=== PATIENT | female | born 1980 | race Caucasian/White ===

== ENCOUNTER 2018-10-16 06:42 | Day surgery (SDC) | payer MEDICAID ==
[2018-10-16] MEDS ORDERED: Propofol 200 MG/20 ML SDV IV ONE (06:43)
[2018-10-16] MEDS ORDERED: Lidocaine 2% 100 MG/5 ML Syringe IVPUSH ONE (06:43)
[2018-10-16] MEDS ORDERED: Sodium Chloride 0.9% 10 ML Syringe FLUSH PRN (07:30)
[2018-10-16] MEDS ORDERED: Lactated Ringers 1,000 ML IV SCH (07:30)
--- NOTE | 2018-10-16 08:23 | PCM.OPNOTE ---
- General Post-Op/Procedure Note Date of Surgery/Procedure: 10/16/18 Operative Procedure(s): c scope Findings: normal exam Pre Op Diagnosis: constipation Post-Op Diagnosis: nl exam Anesthesia Technique: MAC Primary Surgeon: Arturo Jimenez Pathology: none Complications: None Condition: Good Free Text/Narrative:: see dictation
--- NOTE | 2018-10-16 11:20 | OR ---
DATE OF OPERATION: 10/16/2018 SURGEON: Arturo Jimenez MD PROCEDURE PERFORMED: Colonoscopy. PREOPERATIVE DIAGNOSIS: Constipation. POSTOPERATIVE DIAGNOSIS: Normal colon. INDICATIONS FOR PROCEDURE: This is a 38-year-old white female referred with a longstanding history of constipation. She was offered and accepted colonoscopy. DESCRIPTION OF OPERATION: After an excellent IV sedation was administered, digital rectal exam was performed. No marked abnormality was noted. The flexible colonoscope was inserted and advanced to the cecum without difficulty. The prep was excellent. The following findings were noted. Ascending colon, unremarkable. Transverse colon, unremarkable. Descending colon, unremarkable. Sigmoid and rectum, unremarkable. Colon was deflated as the scope was removed. The patient tolerated the procedure well. RECOMMENDATIONS: Repeat colonoscopy at the age of 50. /[id number] PIERO/ANYA
== END 2018-10-16 09:18 | disposition home or self-care (01) ==
LOC: FB.SDS 06:42
PROVIDERS: ATTEND Surgery
DX: K59.00 Constipation, unspecified (principal); E66.9 Obesity, unspecified; Z68.27 Body mass index [BMI] 27.0-27.9, adult; K21.9 Gastro-esophageal reflux disease without esophagitis; F32.9 Major depressive disorder, single episode, unspecified; Z79.899 Other long term (current) drug therapy; Z88.8 Allergy status to other drugs, medicaments and biological substances
CPT/HCPCS: 45378; 81025; J2001; J2704; J7120

== ENCOUNTER 2020-08-02 14:34 | Emergency (ER) | payer MEDICAID ==
[2020-08-02] MEDS ORDERED: Ondansetron 4 MG Tab.DIS PO ONE (14:35)
[2020-08-02] MEDS ORDERED: HYDROmorphone 2 MG/ML SDV IVPUSH ONE (14:48)
[2020-08-02] MEDS ORDERED: Sodium Chloride 0.9% 1,000 ML IV ONE (14:49)
[2020-08-02] MEDS ORDERED: Ondansetron 4 MG/2 ML SDV IVPUSH ONE (14:49)
[2020-08-02] MEDS ORDERED: Sodium Chloride 0.9% 10 ML Syringe FLUSH PRN (15:02)
[2020-08-02] MEDS ORDERED: Ketorolac 30 MG/ML SDV IVPUSH ONE (15:10)
--- NOTE | 2020-08-02 15:22 | EDM.PDOC ---
ED HPI GENERAL MEDICAL PROBLEM - General Chief Complaint: Genitourinary Problem Stated Complaint: POSSIBLE KIDNEY STONE Time Seen by Provider: 08/02/20 14:53 Source of Information: Reports: Patient History Limitations: Reports: No Limitations - History of Present Illness INITIAL COMMENTS - FREE TEXT/NARRATIVE: 39-year-old female who reports she woke at 7 AM today with a dull and aching pain in her left mid back and flank. She thought it was just a "backache" and then should begin to feel some gassy feeling in her abdomen and after she got up and moved around she had an acute and severe worsening of the pain that felt like something was being ripped out of her and at that point she had a 10/10 level of pain and she reports that she rested and the pain subsided by about 1 0:00 am and she felt some residual aching pain in her back until about 1:30 PM today when the pain came back at a severe level again. She reports the pain is very summer to when she had a kidney stone in the past. There has been no nausea or vomiting. No fevers or chills. She has continual urgency to urinate since 1:30 PM today. You. No dysuria. The pain is back up to a 10/10. She is crying in pain at present. She presents to the emergency department via private vehicle. She states she felt completely well prior to today. She has had no antecedent problems. There are no other associated signs or symptoms. There are no other modifying factors. Onset: Today (7 AM) Duration: Getting Worse, Waxing/Waning Location: Reports: Back, Other (Left flank) Quality: Reports: Ache, Sharp, Other (Ripping) Severity: Moderate (to severe) Improves with: Reports: None Worsens with: Reports: None Context: Reports: Other (As above.) Associated Symptoms: Reports: No Other Symptoms Treatments MANAGER APPLICATION: Reports: Other (see below) (Nothing.) Left Lower Back Pain Score (Numeric/FACES): 10 - Related Data Allergies Allergy/AdvReac Type Severity Reaction Status Date / Time carbamazepine Allergy Other Verified 08/02/20 15:00 sertraline [From Zoloft] Allergy Headache Verified 08/02/20 15:00 Home Meds: Home Meds Amitriptyline [Elavil] 75 mg PO BEDTIME 10/15/18 [History] Tretinoin [Retin-A] 15 gm TP BEDTIME 10/15/18 [History] polyethylene glycoL 3350 [MiraLAX] 17 gm PO DAILY PRN 10/15/18 [History] Linaclotide [Linzess] 145 mcg PO DAILY #30 capsule 10/16/18 [Rx] Baclofen 10 mg PO BEDTIME 08/02/20 [History] Gabapentin [Neurontin] 600 mg PO BEDTIME 08/02/20 [History] Phentermine HCl 0.5 tab PO BID 08/02/20 [History] Tamsulosin [Tamsulosin 24 Hr] 0.4 mg PO QPM #7 cap.er 08/02/20 [Rx] hydrOXYzine HCL [Hydroxyzine HCl] 75 mg PO BEDTIME 08/02/20 [History] metFORMIN [Glucophage] 500 mg PO DAILY 08/02/20 [History] Past Medical History Cardiovascular History: Reports: Arrhythmia (FREQUENT PVCs) Gastrointestinal History: Reports: Cholelithiasis, GERD Other Gastrointestinal History: COLITIS Genitourinary History: Reports: Renal Calculus Musculoskeletal History: Reports: Other (See Below) (TMJ D/O) Psychiatric History: Reports: Anxiety, Depression Endocrine/Metabolic History: Reports: Obesity/BMI 30+ - Past Surgical History GI Surgical History: Reports: Cholecystectomy, Colonoscopy, EGD, Hernia Repair/Other, Herlinda Fundoplication Female Surgical History: Reports: Cystoscopy, Hysterectomy, Lithotripsy/ESWL (With stent placed in ureter), Tubal Ligation Social & Family History - Tobacco Use Tobacco Use Status *Q: Never Tobacco User - Caffeine Use Caffeine Use: Reports: None - Alcohol Use Alcohol Use History: Yes Alcohol Use Frequency: Daily (1-2 beers daily.) - Recreational Drug Use Recreational Drug Use: No - Living Situation & Occupation 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.) ED ROS GENERAL - Review of Systems Review Of Systems: See Below Constitutional: Reports: No Symptoms HEENT: Reports: No Symptoms Respiratory: Reports: No Symptoms Cardiovascular: Reports: No Symptoms Endocrine: Reports: No Symptoms GI/Abdominal: Reports: No Symptoms : Reports: Flank Pain (Left) Musculoskeletal: Reports: Back Pain (Left mid back) Skin: Reports: No Symptoms Neurological: Reports: No Symptoms Psychiatric: Reports: No Symptoms Hematologic/Lymphatic: Reports: No Symptoms Immunologic: Reports: No Symptoms ED EXAM, RENAL/ - Physical Exam Exam: See Below Exam Limited By: No Limitations General Appearance: Alert, WD/WN, Moderate Distress (In acute pain.) Eye Exam: Bilateral Eye: EOMI, Normal Inspection Ears: Normal External Exam, Hearing Grossly Normal Nose: Normal Inspection, Normal Mucosa, No Blood Throat/Mouth: Normal Inspection, Normal Lips, Normal Oropharynx, Normal Voice, No Airway Compromise Head: Atraumatic, Normocephalic Neck: Normal Inspection, Supple, Non-Tender, Full Range of Motion Respiratory/Chest: No Respiratory Distress, Lungs Clear, Normal Breath Sounds, No Accessory Muscle Use, Chest Non-Tender Cardiovascular: Normal Peripheral Pulses, Regular Rate, Rhythm, No Murmur GI/Abdominal: Normal Bowel Sounds, Soft, Non-Tender, No Mass Back Exam: Normal Inspection, Full Range of Motion. No: CVA Tenderness (R), CVA Tenderness (L) Extremities: Normal Inspection, Normal Range of Motion, Non-Tender, Normal Capillary Refill, No Pedal Edema Neurological: Alert, Oriented, CN II-XII Intact, Normal Cognition, No Motor/Sensory Deficits Psychiatric: Normal Affect Skin Exam: Warm, Dry, Intact, Normal Color, No Rash Course - Vital Signs Last Recorded V/S: Last Vital Signs Temp 36.4 C 08/02/20 14:38 Pulse 83 08/02/20 16:00 Resp 16 08/02/20 16:00 BP 108/67 08/02/20 16:00 Pulse Ox 98 08/02/20 16:00 - Orders/Labs/Meds Orders: Active Orders 24 hr Category Date Time Status Abdomen Pelvis wo Cont [CT] Stat Exams 08/02/20 15:11 Taken Sodium Chloride 0.9% [Saline Flush] Med 08/02/20 15:02 Active 10 ml FLUSH ASDIRECTED PRN Peripheral IV Insertion Adult [OM.PC] Routine Oth 08/02/20 15:02 Ordered Medication Orders Sodium Chloride (Saline Flush) 10 ml FLUSH ASDIRECTED PRN PRN Reason: Keep Vein Open Last Admin: 08/02/20 14:56 Dose: 10 ml Documented by: LIZABETH Labs: Laboratory Tests 08/02/20 08/02/20 08/02/20 Range/Units 14:35 15:23 15:23 WBC 7.2 (4.5-12.0) X10-3/uL RBC 4.42 (3.23-5.20) x10(6)uL Hgb 13.4 (11.5-15.5) g/dL Hct 40.0 (30.0-51.3) % MCV 90.4 (80-96) fL MCH 30.4 (27.7-33.6) pg MCHC 33.6 (32.2-35.4) g/dL RDW 12.4 (11.5-15.5) % Plt Count 415 H (125-369) X10(3)uL MPV 7.3 L (7.4-10.4) fL Neut % (Auto) 72.2 (46-82) % Lymph % (Auto) 19.8 (13-37) % [place] % (Auto) 5.6 (4-12) % Eos % (Auto) 2 (1.0-5.0) % Baso % (Auto) 1 (0-2) % Neut # (Auto) 5.3 (1.6-8.3) # Lymph # (Auto) 1.4 (0.6-5.0) # [place] # (Auto) 0.4 (0.0-1.3) # Eos # (Auto) 0.1 (0.0-0.8) # Baso # (Auto) 0.0 (0.0-0.2) # Sodium 142 (135-145) mmol/L Potassium 4.1 (3.5-5.3) mmol/L Chloride 105 (100-110) mmol/L Carbon Dioxide 30 (21-32) mmol/L BUN 10 (7-18) mg/dL Creatinine 0.9 (0.55-1.02) mg/dL Est Cr Clr Drug Dosing 67.90 mL/min Estimated GFR (MDRD) > 60 (>60) BUN/Creatinine Ratio 11.1 (9-20) Glucose 125 H (80-116) mg/dL Calcium 8.7 (8.6-10.2) mg/dL Urine Color Yellow (YELLOW) Urine Appearance Turbid (CLEAR) Urine pH 8.0 H (5.0-6.5) Ur Specific [place] 1.015 (1.010-1.025) Urine Protein Negative (NEGATIVE) mg/dL Urine Glucose (UA) Normal (NORMAL) mg/dL Urine Ketones Negative (NEGATIVE) mg/dL Urine Occult Blood Negative (NEGATIVE) Urine Nitrite Negative (NEGATIVE) Urine Bilirubin Negative (NEGATIVE) Urine Urobilinogen Normal (NEGATIVE) mg/dL Ur Leukocyte Esterase Negative (NEGATIVE) Urine RBC 0-5 (0-5) Urine WBC 0-5 (0-5) Ur Squamous Epith Cells Many H (NS,R,O) Amorphous Sediment Many Urine Bacteria Few H (NS) Meds: Medications Generic Name Dose Route Start Last Admin Trade Name Freq PRN Reason Stop Dose Admin Sodium Chloride 10 ml 08/02/20 15:02 08/02/20 14:56 Saline Flush FLUSH 10 ml ASDIRECTED PRN Administration Keep Vein Open Discontinued Medications Generic Name Dose Route Start Last Admin Trade Name Freq PRN Reason Stop Dose Admin Hydromorphone HCl 0.5 mg 08/02/20 14:48 08/02/20 14:58 Dilaudid IVPUSH 08/02/20 14:49 0.5 mg ONETIME ONE Administration Sodium Chloride 1,000 mls @ 999 mls/hr 08/02/20 14:49 08/02/20 14:58 Normal Saline IV 08/02/20 15:49 999 mls/hr .BOLUS ONE Administration Ketorolac Tromethamine 30 mg 08/02/20 15:10 08/02/20 15:18 Toradol IVPUSH 08/02/20 15:11 30 mg ONETIME ONE Administration Ondansetron HCl 4 mg 08/02/20 14:49 08/02/20 14:56 Zofran IVPUSH 08/02/20 14:50 4 mg ONETIME ONE Administration Tamsulosin HCl 0.4 mg 08/02/20 16:08 08/02/20 16:17 Flomax PO 08/02/20 16:09 0.4 mg ONETIME ONE Administration - Re-Assessments/Exams Free Text/Narrative Re-Assessment/Exam: 08/02/20 15:30: Patient had received Dilaudid initially with minimal reduction in her pain. She received Toradol following this and now her pain is down to 5/10. She is going to radiology for CT scan of her abdomen and pelvis without IV contrast this point. 08/02/20 16:17: Patient reports she feels much improved. Pain is now down to 3/10. The CT scan of her abdomen and pelvis showed left UVJ stone that was 2 mm and there was [id number] hydroureteronephrosis. There is also a 4 mm stone in the right kidney. She will be given Flomax 0.4 mg by mouth. She should be able to pass this on her own. She states that she has hydrocodone at home and she can take that as needed for moderate to severe pain. I will give her a take- home pack of Zofran for any nausea that she may have an I will send a prescription of Flomax to [facility] pharmacy. She is to follow- up with her primary provider. Precautions and reasons for return to the emergency department were discussed with the patient while she was in the emergency department for details of the patient's discharge instructions. Departure - Departure Time of Disposition: 16:25 Disposition: Home, Self-Care 01 Clinical Impression: Left ureteral stone, Obstructive uropathy, Renal colic on left side - Discharge Information Prescriptions: Tamsulosin [Tamsulosin 24 Hr] 0.4 mg PO QPM #7 cap.er Instructions: Renal Colic, [id number], Kidney Stones, [id number] Referrals: PCP,None [Ordering Only Provider] - Forms: ED Department Discharge Additional Instructions: You are passing a kidney stone on the left side. The kidney stone is only 2 mm in size and you should be able to pass this on your own. You need to increase your fluid intake. You can take ibuprofen for pain as needed. You can also take the hydrocodone that you have at home for more severe pain. Medication as prescribed for nausea (Zofran 4 mg ODT). I have also prescribed a medication called Flomax that you need to take every night that should help your kidney stone to pass. Strain all of your urine follow-up with your primary provider this coming week. Back to the emergency department for severe, uncontrolled pain, unrelenting vomiting, fever or any other concerning sign or symptom. Sepsis Event Note (ED) - Evaluation Sepsis Screening Result: No Definite Risk - Focused Exam Vital Signs: Vital Signs Temp Pulse Resp BP Pulse Ox 08/02/20 16:00 83 16 108/67 98 08/02/20 14:38 36.4 C 83 18 127/93 H 98 - My Orders Last 24 Hours: My Active Orders 08/02/20 15:02 Sodium Chloride 0.9% [Saline Flush] 10 ml FLUSH ASDIRECTED PRN Peripheral IV Insertion Adult [OM.PC] Routine 08/02/20 15:11 Abdomen Pelvis wo Cont [CT] Stat - Assessment/Plan Last 24 Hours: My Active Orders 08/02/20 15:02 Sodium Chloride 0.9% [Saline Flush] 10 ml FLUSH ASDIRECTED PRN Peripheral IV Insertion Adult [OM.PC] Routine 08/02/20 15:11 Abdomen Pelvis wo Cont [CT] Stat
[2020-08-02] MEDS ORDERED: Tamsulosin 0.4 MG Cap.ER PO ONE (16:08)
== END 2020-08-02 16:50 | disposition home or self-care (01) ==
LOC: FB.ED 14:34
DX: N13.2 Hydronephrosis with renal and ureteral calculous obstruction (principal); F32.9 Major depressive disorder, single episode, unspecified; E66.9 Obesity, unspecified; Z68.27 Body mass index [BMI] 27.0-27.9, adult; Z88.8 Allergy status to other drugs, medicaments and biological substances; Z79.899 Other long term (current) drug therapy
CPT/HCPCS: 36415; 74176; 80048; 81001; 85025; 96374; 96375; 99284-25; A9270-GY; J1170; J1885; J2405; J7030

== ENCOUNTER 2021-05-30 14:22 | Emergency (ER) | payer MEDICAID ==
--- NOTE | 2021-05-30 15:42 | EDM.PDOC ---
ED HPI GENERAL MEDICAL PROBLEM - General Chief Complaint: Laceration Stated Complaint: LACERATION MIDDLE FINGER L HAND Time Seen by Provider: 05/30/21 15:25 Source of Information: Reports: Patient History Limitations: Reports: No Limitations - History of Present Illness INITIAL COMMENTS - FREE TEXT/NARRATIVE: Patient was in good health when she accidentally cut her finger with a piece of equipment that she is unfamiliar with. Eyes any upper respiratory symptoms including fever, chills, cough, rhinorrhea, she also denies change in bowel or bladder habits. He had significant bleeding and some pain but did not lose consciousness did not lose movement or feeling in her left middle finger. 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: Dressing(s) L 3& 4th digits Pain Score (Numeric/FACES): 2 - Related Data Allergies Allergy/AdvReac Type Severity Reaction Status Date / Time carbamazepine Allergy Other Verified 05/30/21 14:31 sertraline [From Zoloft] Allergy Headache Verified 05/30/21 14:31 Home Meds: Home Meds Amitriptyline [Elavil] 100 mg PO BEDTIME 10/15/18 [History] Tretinoin [Retin-A] 15 gm TP BEDTIME PRN 10/15/18 [History] polyethylene glycoL 3350 [MiraLAX] 17 gm PO DAILY PRN 10/15/18 [History] Linaclotide [Linzess] 145 mcg PO DAILY #30 capsule 10/16/18 [Rx] Baclofen 10 mg PO BID 08/02/20 [History] Phentermine HCl 1.5 tab PO BID 08/02/20 [History] hydrOXYzine HCL [Hydroxyzine HCl] 75 mg PO BEDTIME 08/02/20 [History] metFORMIN [Glucophage] 1,000 mg PO DAILY 08/02/20 [History] Escitalopram [Lexapro] 20 mg PO BEDTIME 05/30/21 [History] Estrogens, Conjugated [Premarin] 0.625 mg PO DAILY 05/30/21 [History] Metoprolol Succinate [Toprol Xl] 50 mg PO BEDTIME 05/30/21 [History] SUMAtriptan succinate [Imitrex] 100 mg PO ASDIRECTED 05/30/21 [History] Venlafaxine [Effexor] 150 mg PO BEDTIME 05/30/21 [History] Past Medical History Cardiovascular History: Reports: Arrhythmia, Other (See Below) Other Cardiovascular History: FREQUENT PVCs, hx POTS Respiratory History: Reports: Sleep Apnea Other Respiratory History: SNORING, hx sleep apnea, doesn't used machine Gastrointestinal History: Reports: Cholelithiasis, GERD Other Gastrointestinal History: COLITIS Genitourinary History: Reports: Renal Calculus PROVIDER EDUCATION SPECIALIST History: Reports: Other PROVIDER EDUCATION SPECIALIST History: Musculoskeletal History: Reports: Arthritis, Other (See Below) Other Musculoskeletal History: TMJ D/O Neurological History: Reports: Migraines Psychiatric History: Reports: Anxiety, Depression Endocrine/Metabolic History: Reports: Diabetes, Gestational, Hypoparathyroidism, Obesity/BMI 30+ Hematologic History: Reports: Anemia - Infectious Disease History Infectious Disease History: Reports: Chicken Pox, Novel Coronavirus - Past Surgical History GI Surgical History: Reports: Cholecystectomy, Colonoscopy, EGD, Hernia Repair/Other, Herlinda Fundoplication Female Surgical History: Reports: Cystoscopy, Hysterectomy, Lithotripsy/ESWL, Tubal Ligation, Ureteral Stent Social & Family History - Family History Family Medical History: No Pertinent Family History - Tobacco Use Tobacco Use Status *Q: Never Tobacco User - Caffeine Use Caffeine Use: Reports: Soda - Alcohol Use Days Per Week of Alcohol Use: 7 Number of Drinks Per Day: 2 Total Drinks Per Week: 14 - Recreational Drug Use Recreational Drug Use: No - Living Situation & Occupation 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.) ED ROS GENERAL - Review of Systems Review Of Systems: See Below Constitutional: Reports: No Symptoms HEENT: Reports: No Symptoms Respiratory: Reports: No Symptoms Cardiovascular: Reports: No Symptoms Endocrine: Reports: No Symptoms GI/Abdominal: Reports: No Symptoms : Reports: No Symptoms Musculoskeletal: Reports: No Symptoms Skin: Reports: Wound Neurological: Reports: No Symptoms Psychiatric: Reports: No Symptoms Hematologic/Lymphatic: Reports: No Symptoms Immunologic: Reports: No Symptoms ED EXAM, SKIN/RASH Exam: See Below Exam Limited By: No Limitations General Appearance: Alert, WD/WN, No Apparent Distress Eye Exam: Bilateral Eye: EOMI Head: Atraumatic, Normocephalic Neck: Normal Inspection. No: Lymphadenopathy (R), Lymphadenopathy (L) Respiratory/Chest: No Respiratory Distress, Lungs Clear, Normal Breath Sounds Cardiovascular: Regular Rate, Rhythm, No Murmur Peripheral Pulses: 2+: Radial (L), Radial (R), Dorsalis Pedis (L), Dorsalis Pedis (R) GI/Abdominal: Normal Bowel Sounds, Soft, Non-Tender Back Exam: Normal Inspection. No: CVA Tenderness (R), CVA Tenderness (L) Extremities: Normal Inspection, No Pedal Edema Neurological: Alert, Oriented, Normal Cognition Psychiatric: Normal Affect, Normal Mood Skin: Other (Approximately 1 cm laceration just distal to the proximal interphalangeal joint of the left third digit. Sensation and capillary refill intact distal and throughout both hands. Movement intact throughout both hands) Location, Skin: Upper Extremity, Right Course - Vital Signs Text/Narrative:: Approximately 4 sutures using 4-0 Ethilon were used to close a simple superficial laceration approximately 2 cm long on the posterior aspect of the left third digit just distal to the interphalangeal joint. The finger and laceration were anesthetized with 1% lidocaine without epinephrine. Hemostasis was achieved with direct pressure and suturing. Patient tolerated procedure well. Sensation, capillary refill, and movement were intact following the procedure distal to the suture site. Last Recorded V/S: Last Vital Signs Temp 36.9 C 05/30/21 14:28 Pulse 76 05/30/21 14:28 Resp 18 05/30/21 14:28 BP 117/86 05/30/21 14:28 Pulse Ox 99 05/30/21 14:28 Departure - Departure Time of Disposition: 16:22 Disposition: Home, Self-Care 01 Condition: Good Clinical Impression: Laceration - Discharge Information *PRESCRIPTION DRUG MONITORING PROGRAM REVIEWED*: Not Applicable *COPY OF PRESCRIPTION DRUG MONITORING REPORT IN PATIENT [place]ORE[place]: Not Applicable Instructions: Laceration Care, Adult Referrals: Gina Amaya NP [Primary Care Provider] - Forms: ED Department Discharge Additional Instructions: Patient encouraged to ice, rest, elevate her injured finger and to alternate Tylenol and ibuprofen for pain control. Patient advised to follow-up with her primary care physician. Sepsis Event Note (ED) - Evaluation Sepsis Screening Result: No Definite Risk - Focused Exam Vital Signs: Vital Signs Temp Pulse Resp BP Pulse Ox 05/30/21 14:28 36.9 C 76 18 117/86 99
== END 2021-05-30 16:54 | disposition home or self-care (01) ==
LOC: FB.ED 14:22
DX: S61.213A Laceration without foreign body of left middle finger without damage to nail, initial encounter (principal); K21.9 Gastro-esophageal reflux disease without esophagitis; E11.9 Type 2 diabetes mellitus without complications; E66.9 Obesity, unspecified; Z79.84 Long term (current) use of oral hypoglycemic drugs; Z79.899 Other long term (current) drug therapy; Z68.34 Body mass index [BMI] 34.0-34.9, adult; Z86.16 Personal history of COVID-19; Z88.8 Allergy status to other drugs, medicaments and biological substances; W26.8XXA Contact with other sharp object(s), not elsewhere classified, initial encounter
CPT/HCPCS: 12001; 99282-25

== ENCOUNTER 2021-08-17 06:13 | Day surgery (SDC) | payer MEDICAID ==
[2021-08-17] MEDS ORDERED: Propofol 200 MG/20 ML SDV IV ONE (06:14)
[2021-08-17] MEDS ORDERED: Glycopyrrolate 0.2 MG/ML 5 ML MDV IV ONE (06:14)
[2021-08-17] MEDS ORDERED: Lidocaine 2% 5 ML SDV INJECT ONE (06:14)
[2021-08-17] MEDS ORDERED: Sodium Chloride 0.9% 10 ML Syringe FLUSH PRN (06:15)
[2021-08-17] MEDS: Lactated Ringers 1,000 ML IV SCH (06:40)
--- NOTE | 2021-08-17 08:29 | PCM.HPR ---
H & P Addendum review - H & P Addendum Review Date of Original H & P: 08/04/21 Date Reviewed: 08/17/21 Time Reviewed: 07:30 Patient was Examined: No Changes
--- NOTE | 2021-08-17 08:30 | PCM.OPNOTE ---
- General Post-Op/Procedure Note Date of Surgery/Procedure: 08/17/21 Operative Procedure(s): EGD with bx. Colonoscopy Findings: Both normal Pre Op Diagnosis: LUQ pain, GERD Post-Op Diagnosis: Same Anesthesia Technique: MAC Primary Surgeon: Ruben Wilder Complications: None Condition: Good
--- NOTE | 2021-08-17 09:48 | OR ---
DATE OF OPERATION: 08/17/2021 SURGEON: Ruben Wilder MD PREOPERATIVE DIAGNOSES: 1. Gastroesophageal reflux disease symptoms. 2. Chronic left upper quadrant abdominal pain. POSTOPERATIVE DIAGNOSES: 1. Normal esophagogastroduodenoscopy. 2. Normal colonoscopy. PROCEDURE: 1. Esophagogastroduodenoscopy with biopsies. 2. Colonoscopy. ANESTHESIA: IV sedation. DESCRIPTION OF PROCEDURE: The patient was brought to the procedure room, where she was placed on her left side and IV sedation administered. Oral bite block was placed and the upper endoscope advanced into the esophagus under direct vision without difficulty. Vocal cords were viewed and were normal. The scope was advanced to the second portion of the duodenum. The duodenum and pylorus were normal. Antrum and body of the stomach were normal. Retroflexion revealed a normal post Herlinda fundus. Anti-reflux wrap appeared to be intact. Squamocolumnar junction was normal. I do not see any erosions, ulcerations, or other evidence of esophagitis. I did take random biopsies from the stomach body and also from the distal esophagus because of her symptoms of reflux. Air was removed from the stomach and the scope withdrawn through the remaining esophagus, which appeared normal. The patient tolerated this portion of the procedure well. Next, colonoscopy was performed after digital rectal exam was performed, which was normal. The colonoscope was inserted and advanced to the level of the cecum without difficulty. Cecal position was confirmed by identifying the appendiceal lumen and ileocecal valve. The prep was good and surfaces were well visualized. Upon withdrawing the scope, the ascending, transverse, and descending colon were normal in appearance. The sigmoid colon and rectum were normal. Retroflexion was normal. Air was removed and the scope withdrawn. The patient tolerated the procedure well and returned to recovery in stable condition. I will have the patient follow up with Gretta Arellano next week for review of pathology report. She sounds as if she is having recurrence of her gastroesophageal reflux disease symptoms despite Herlinda approximately 10 years ago. I would recommend a trial of proton pump inhibitor for a month to see if this helps with her symptoms and she can remain on this long-term if it helps. I recommend routine colon screening at age 50. /[id number] KAYLAH/ANYA
== END 2021-08-17 09:25 | disposition home or self-care (01) ==
LOC: FB.SDS 06:13
PROVIDERS: ATTEND Surgery
DX: K29.50 Unspecified chronic gastritis without bleeding (principal); K21.9 Gastro-esophageal reflux disease without esophagitis; R10.12 Left upper quadrant pain; G89.29 Other chronic pain; Z98.84 Bariatric surgery status; Z79.899 Other long term (current) drug therapy; Z88.8 Allergy status to other drugs, medicaments and biological substances; F41.9 Anxiety disorder, unspecified; E66.9 Obesity, unspecified; Z68.34 Body mass index [BMI] 34.0-34.9, adult
CPT/HCPCS: 00813; 43239; 45378; J2704; J3490; J7120; 88305; 88313; 88342